=== PATIENT | female | born 2000 | race Caucasian/White ===

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

== ENCOUNTER 2019-01-31 20:03 | Emergency (ER) ==
[2019-01-31 20:14] VITALS: BP 137/107
== END 2019-01-31 21:10 | disposition left against medical advice (07) ==
LOC: ER 20:03 → MERGE 20:03 → ER 21:10
DX: Z53.21 Procedure and treatment not carried out due to patient leaving prior to being seen by health care provider (principal)

== ENCOUNTER 2019-03-10 21:48 | Emergency (ER) | payer OTHER ==
[2019-03-10 22:10] VITALS: BP 106/62
== END 2019-03-11 01:05 | disposition left against medical advice (07) ==
LOC: ER 21:48
DX: Z53.21 Procedure and treatment not carried out due to patient leaving prior to being seen by health care provider (principal)

== ENCOUNTER 2019-05-08 00:16 | Emergency (ER) | payer OTHER ==
[2019-05-08] MEDS ORDERED: HYDROXYZINE PAMOATE 25 MG CAPSULE (4 CAP/ER DISP) PO PRN (03:32)
--- NOTE | 2019-05-08 03:34 | ER Document Report ---
ED General - General Chief Complaint: Shortness Of Breath Stated Complaint: DIFFICULTY BREATHING Time Seen by Provider: 05/08/19 03:15 Notes: Patient is a pleasant 18-year-old female presents with complaint of anxiety panic attack. Patient says that she gets these frequently. She said she just woke up and felt panicked. She is unsure what triggers them sometimes. She is starting BuSpar and Trintellix recently. She says she started taking these 3 days ago. She does not have any medications that she takes as a rescue medication. States she woke up and had rapid breathing and felt anxious. She had cramping into her hands and she had cramping into her feet. She states she is now feeling improved. Denies any current chest pain or shortness of breath. TRAVEL OUTSIDE OF THE [place] IN LAST 30 DAYS: No - Related Data Allergies/Adverse Reactions: No Known Allergies Allergy (Verified 05/08/19 03:25) Past Medical History - Social History Smoking Status: Never Smoker Frequency of alcohol use: None Drug Abuse: None Family History: Reviewed & Not Pertinent Renal/ Medical History: Denies: Hx Peritoneal Dialysis Review of Systems - Review of Systems Notes: My Normal Review Basic REVIEW OF SYSTEMS: CONSTITUTIONAL : Denies fever, chills, or sweats. Denies recent illness. EENT: Denies eye, ear, throat, or mouth pain or symptoms. Denies nasal or sinus congestion. CARDIOVASCULAR: Chest tightness which is since resolved. RESPIRATORY: Difficulty breathing which is since resolved. GASTROINTESTINAL: Denies abdominal pain. Denies nausea, vomiting, or diarrhea. GENITOURINARY: Denies difficulty urinating, painful urination, burning, frequency, or blood in urine. MUSCULOSKELETAL: Denies neck or back pain or joint pain or swelling. SKIN: Denies rash or skin lesions. NEUROLOGICAL: Denies altered mental status or loss of consciousness. Denies headache. Denies weakness or paralysis or loss of use of either side. Denies problems with gait or speech. Denies sensory or motor loss. Psychiatric: Anxiety and panic ALL OTHER SYSTEMS REVIEWED AND NEGATIVE. Physical Exam - Vital signs Vitals: Temp Pulse Resp BP Pulse Ox 97.9 F 91 H 16 103/63 97 05/08/19 00:21 05/08/19 00:21 05/08/19 00:21 05/08/19 00:21 05/08/19 00:21 - Notes Notes: General Appearance: Well nourished, alert, cooperative, no acute distress, no obvious discomfort. Well-appearing. Vitals: reviewed, See vital signs table. Head: no swelling or tenderness to the head Eyes: PERRL, EOMI, Conjuctiva clear Mouth: No decreasd moisture Lungs: No wheezing, No rales, No rhonci, No accessory muscle use, good air exchange bilaterally. Heart: Normal rate, Regular rythm, No murmur, no rub Extremities: strength 5/5 in all extremities, good pulses in all extremities, no swelling or tenderness in the extremities, no edema. Skin: warm, dry, appropriate color, no rash Neuro: speech clear, oriented x 3, normal affect, responds appropriately to questions. Course - Re-evaluation Re-evalutation: 05/08/19 08:34 Patient looks well. Appears that she had a panic attack based on her history. She looks well and her symptoms have since resolved. I do not suspect pulmonary embolism. Her heart rate is normalized. She has no pleuritic chest pain. She is not short of breath. She has no leg pain or leg swelling on exam. Also her symptoms are very consistent with her previous panic attacks. I encouraged her to continue take her BuSpar. I will give her Vistaril to take as a rescue medication for when she has a severe panic attacks. She is to follow-up with her psychiatrist this coming week. Patient to return to ER if she has recurrent worsening symptoms. Patient agrees with plan and will be discharged home. Dictation of this chart was performed using voice recognition software; therefore, there may be some unintended grammatical errors. - Vital Signs Vital signs: Temp Pulse Resp BP Pulse Ox 97.5 F 69 19 104/49 L 96 05/08/19 03:45 05/08/19 03:45 05/08/19 03:45 05/08/19 03:45 05/08/19 03:45 Discharge - Discharge Clinical Impression: Panic attack Condition: Good Disposition: HOME, SELF-CARE Additional Instructions: Please continue take your prescribed medications. I have prescribe you a medication called Vistaril. This medication you can take if you feel a panic attack coming on. Be aware that this medication may make you sleepy so please do not drive after taking it. Please return to ER if you have panic attack that is not improving with medication or if you feel unwell. Prescriptions: Hydroxyzine Pamoate [Vistaril 25 mg Capsule] 25 mg PO Q6 PRN #20 capsule PRN Reason: Anxiety
[2019-05-08 03:48] VITALS: BP 104/49
== END 2019-05-08 03:45 | disposition home or self-care (01) ==
LOC: ER 00:16
DX: F41.0 Panic disorder [episodic paroxysmal anxiety] (principal); R06.02 Shortness of breath
CPT/HCPCS: 99283; J3490

== ENCOUNTER 2019-08-25 23:18 | Emergency (ER) | payer OTHER ==
--- NOTE | 2019-08-25 23:49 | ER Document Report ---
ED General - General Chief Complaint: Suicidal Ideation Stated Complaint: SUICIDAL THOUGHTS/IVC Time Seen by Provider: 08/25/19 23:48 Mode of Arrival: Carried Information source: Patient, Law Enforcement TRAVEL OUTSIDE OF THE [place] IN LAST 30 DAYS: No - HPI Notes: Patient is a 19-year-old female history of panic attacks and depression presents to the emergency department with report of depression and cutting behavior on her right leg and drinking alcohol earlier this evening with report of suicidal ideation. The patient contacted law enforcement multiple times to report the suicidal ideation and then mentioned something to the clinical manager social media that came out the check on her. The patient on my questioning denies any suicidality but she does not answer questions completely. The patient denies any overdose. She reports no fever, chills, cough, congestion, medication ingestion, constipation, diarrhea, dysuria. Patient's medications include Zoloft which she does not take regularly. Patient also is on Xanax but has not had a dose in several days. Past medical history patient's had previous suicidality in the past but she is vague about whether or not she was hospitalized related to it. Social history patient is from [place] where her family still lives. She is and her is currently on training exercises in [place] for the last month. The patient states that her and her family do not know what is happening currently and are not aware that she is here. - Related Data Allergies/Adverse Reactions: No Known Allergies Allergy (Verified 05/08/19 03:25) Past Medical History - General Information source: Patient - Social History Smoking Status: Never Smoker Frequency of alcohol use: Occasional Drug Abuse: None Lives with: Spouse/Significant other Family History: Reviewed & Not Pertinent Renal/ Medical History: Denies: Hx Peritoneal Dialysis Review of Systems - Review of Systems -: Yes All other systems reviewed and negative Physical Exam - Vital signs Vitals: Temp Pulse Resp BP Pulse Ox 97.7 F 77 17 117/64 98 08/26/19 00:31 08/26/19 00:31 08/26/19 00:31 08/26/19 00:31 08/26/19 00:31 - Notes Notes: PHYSICAL EXAMINATION: GENERAL: Well-appearing, well-nourished and in no acute distress. HEAD: Atraumatic, normocephalic. EYES: Pupils equal round and reactive to light, extraocular movements intact, conjunctiva are mildly injected bilaterally. ENT: Nares patent, oropharynx clear without exudates. Moist mucous membranes. NECK: Normal range of motion, supple without lymphadenopathy LUNGS: Breath sounds clear to auscultation bilaterally and equal. No wheezes rales or rhonchi. HEART: Regular rate and rhythm without murmurs ABDOMEN: Soft, nontender, nondistended abdomen. No guarding, no rebound. No m asses appreciated. Female : deferred Musculoskeletal: Normal range of motion, no pitting or edema. No cyanosis. NEUROLOGICAL: Cranial nerves grossly intact. Normal speech, normal gait. Normal sensory, motor exams PSYCH: Tearful and anxious. According to the mental health counselor, the pat ient and law enforcement reported the patient having suicidal and self-harm ideation at home. Patient denies any hallucinations or homicidal ideation. She does acknowledge somewhat having some prior suicidality but is very vague currently. SKIN: Warm, Dry, normal turgor, no rashes noted. Patient has fresh superficial abrasions right lower extremity lateral aspect as well as an older somewhat d eeper laceration measuring 3 cm that goes into the dermis. This does not appear infected. Course - Re-evaluation Re-evalutation: 08/26/19 00:20 Patient initially would not not allow the staff to remove her rings for her safety. She was required brief four-point restraints and a shot of Haldol with Benadryl. She may need Ativan in addition to help appropriately calm her down. Antibiotic ointment was applied to the patient's right lower extremity wounds. Patient will need to be medically cleared for psychiatric evaluation and further care. 08/26/19 00:21 Patient was given a tetanus shot. Alcohol level was elevated. She will be given p.o. fluids and a chance to sober up. Patient arrived with involuntary commitment papers which are holding her until further evaluation. 08/26/19 04:57 - Vital Signs Vital signs: Temp Pulse Resp BP Pulse Ox 97.7 F 77 17 117/64 98 08/26/19 00:31 08/26/19 00:31 08/26/19 00:31 08/26/19 00:31 08/26/19 00:31 - Laboratory Result Diagrams: 08/26/19 00:01 08/26/19 00:01 Laboratory results interpreted by me: 08/26/19 00:01 Sodium 146.8 H Chloride 109 H BUN 6 L Acetaminophen < 10 L Discharge - Discharge Clinical Impression: Suicidal ideations, Deliberate self-cutting Depression Qualifiers: Depression Type: major depressive disorder Major depression recurrence: recurrent Active/Remission status: currently active Major depression episode se verity: moderate Qualified Code(s): F33.1 - Major depressive disorder, recurrent, moderate Alcohol intoxication Qualifiers: Complication of substance-induced condition: with unspecified complication Qualified Code(s): F10.929 - Alcohol use, unspecified with intoxication, unspecified Condition: Good Disposition: OTHER
[2019-08-26] MEDS ORDERED: HALOPERIDOL LACTATE INJ 5 MG/1 ML VIAL IM ONE (00:10)
[2019-08-26] MEDS ORDERED: DIPHENHYDRAMINE HCL 50 MG/ML VIAL IM ONE (00:10)
[2019-08-26] MEDS ORDERED: LORAZEPAM INJ 2 MG/1 ML VIAL IM ONE (00:11)
[2019-08-26] MEDS ORDERED: BACITRACIN ZINC OINTMENT 15 GM TP ONE (00:20)
[2019-08-26 00:31] LABS: ABSOLUTE BASOPHILS # (AUTO) 0.1 10^3/uL (0.0-0.2); ABSOLUTE EOSINOPHILS # (AUTO) 0.1 10^3/uL (0.0-0.6); ABSOLUTE LYMPHOCYTES (AUTO) 1.9 10^3/uL (0.5-4.7); ABSOLUTE MONOCYTES (AUTO) 0.3 10^3/uL (0.1-1.4); ABSOLUTE NEUT (AUTO) 2.8 10^3/uL (1.7-8.2); EOSINOPHILS % (AUTO) 1.1 % (0-6); HEMATOCRIT 45.6 % (36.0-47.0); HEMOGLOBIN 15.3 g/dL (12.0-15.5); LYMPHOCYTES % (AUTO) 36.8 % (13-45); MEAN CORPUSCULAR HEMOGLOBIN 31.1 pg (27.0-33.4); MEAN CORPUSCULAR HGB CONC 33.7 g/dL (32.0-36.0); MEAN CORPUSCULAR VOLUME 92 fl (80-97); MONOCYTES % (AUTO) 5.9 % (3-13); PLATELET COUNT 210 10^3/uL (150-450); RED BLOOD COUNT 4.94 10^6/uL (3.72-5.28); RED CELL DISTRIBUTION WIDTH 12.8 % (11.5-14.0); SEGMENTED NEUTROPHILS % (AUTO) 55.2 % (42-78); TOTAL CELLS COUNTED % (AUTO) 100 %
[2019-08-26 00:51] LABS: ACETAMINOPHEN < 10 ug/mL (10-30); ALBUMIN 4.8 g/dL (3.5-5.0); ALCOHOL 268 mg/dL (NONE DETECTED); ALKALINE PHOSPHATASE 61 U/L (38-126); ANION GAP 15 (5-19); ASPARTATE AMINO TRANSFERASE 31 U/L (14-36); BILIRUBIN,DIRECT 0.1 mg/dL (0.0-0.4); BILIRUBIN,TOTAL 0.4 mg/dL (0.2-1.3); BLOOD UREA NITROGEN 6 mg/dL (7-20); CALCIUM 9.4 mg/dL (8.4-10.2); CARBON DIOXIDE 23 mmol/L (22-30); CHLORIDE 109 mmol/L (98-107); GLUCOSE 83 mg/dL (75-110); POTASSIUM 3.7 mmol/L (3.6-5.0); TOTAL PROTEIN 7.9 g/dL (6.3-8.2)
[2019-08-26] MEDS ORDERED: DIPH/PERTUSS(ACELL)/TETANUS VAC/PF 0.5 ML SYR (>=10YO) IM ONE (01:29)
[2019-08-26 11:31] LABS: APPEARANCE,URINE CLEAR; BILIRUBIN,URINE NEGATIVE (NEGATIVE); COLOR,URINE STRAW; GLUCOSE, URINE NEGATIVE (NEGATIVE); KETONES,URINE NEGATIVE (NEGATIVE); LEUKOCYTE ESTERASE,URINE NEGATIVE (NEGATIVE); NITRITE,URINE NEGATIVE (NEGATIVE); PROTEIN,URINE NEGATIVE (NEGATIVE); URINE SPECIFIC GRAVITY 1.004; UROBILINOGEN,URINE NEGATIVE mg/dL (<2.0)
[2019-08-26 12:12] LABS: URINE AMPHETAMINES SCREEN NEGATIVE; URINE BARBITURATES SCREEN NEGATIVE; URINE BENZODIAZEPINES SCREEN NEGATIVE; URINE COCAINE SCREEN NEGATIVE; URINE MARIJUANA (THC) SCREEN NEGATIVE; URINE METHADONE SCREEN NEGATIVE; URINE PHENCYCLIDINE SCREEN NEGATIVE
--- NOTE | 2019-08-26 15:28 | PSYCHOLOGICAL NOTE ---
Psych Note - Psych Note Date seen by psych provider: 08/26/19 Time seen by psych provider: 07:20 Psych Note: Patient presents to ED via [facility] for endorsing suicidal ideation. Clinician conducted chart review at 06:20. Patient was sleeping when clinician entered room. Patient was pleasant and complained of non suicidal self injury due to emotional distress. Patient reports "cutting myself" to manage emotional distress related to "coming home to an empty house from work." Patient denies current suicidal and homicidal ideations. Patient reports is away training. Patient verbalized "cutting is not helpful." Patient reports increased anxiety and sadness when leaves. Patient denies thoughts/emotions of abandonment when leaves. Patient verbalized understanding that "leaves as part of his job." Patient has little social support. Patient reports taking Zoloft for 2 weeks. Patient reports, an this time, medication is not helpful. Patient has a mental health appointment scheduled for 10/09/[address] Clarence Weaver- who has been contacted to schedule an earlier appointment. Client declined the need for an earlier appointment. Patient denies wanting to , and stated, "I just needed rest" Patient denied being unsafe at home. Patient reported infrequent high amounts of alcohol consumption (infrequently 6- 8 beers in one sitting). Patient denied referral to [facility] for treatment to address alcohol and mental health concerns. Patient denied she has any issues with alcohol. Discussed reaching out to the community counseling center on [facility] to address mental health and alcohol use concerns. Medication recommendations per [facility]'s contracted psychiatrist, Dr. Jeet Foote, are as follows: NONE Impression/Plan: Patient is cleared from acute psychiatric services. Patient no longer meets IVC criteria per [place] GS 122C. At this time, it is recommended IVC be rescinded. Patient is a 19 year old female who was brought into the ED via [facility] for endorsement of suicidal ideation. 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 Patient's primary complaint is emotional distress related to "coming home to an empty house." Patient has family in [place], however could not identify a local support system. At this time, patient denies suicidal and homicidal ideation. Patient denies auditory and visual hallucinations. At this time, patient is demonstrating insight and judgment in her current situation. Patient declined referral to [facility] to address mental health and alcohol use concerns. It is recommended that the patient follow up with a mental health provider to address alcohol use and mental health concerns. Dr. Browne was consulted on the care and management of this patient; attending physician is in agreement with recommendations and disposition.
[2019-08-26 18:27] VITALS: BP 124/55
== END 2019-08-26 18:27 | disposition home or self-care (01) ==
LOC: ER 23:18
DX: R45.851 Suicidal ideations (principal); F33.1 Major depressive disorder, recurrent, moderate; F10.929 Alcohol use, unspecified with intoxication, unspecified; Z23 Encounter for immunization
CPT/HCPCS: 99285; 96372; 90471; 36415; 80307 ×3; 83735; 84443; 85025; 81025; 80053; 81001; 90715; J1630; J3490